=== PATIENT | female | born 1980 | race Caucasian/White ===

== ENCOUNTER 2017-12-18 02:07 | Emergency (ER) | payer SELFPAY ==
[~2017-12-18] VITALS: Ht 157.5 cm; Wt 54.0 kg
[2017-12-18] MEDS ORDERED: ONDANSETRON HCL/PF 4 MG/2 ML VIAL ONE (02:19)
--- NOTE | 2017-12-18 02:20 | NUR ---
37 yo female bb self. patient is alert and oriented, states she has a history of alcoholism, yesterday went on a dmitri drinking, today patient is nausea with multiple episodes of vomit. patient ambulated to er bed with steady gait, skin warm and dry, resp even and unlabored. patient was gowned,placed on cardiac rehabilitation program director. awaiting orders from provider, will continue to monitor
[2017-12-18] MEDS ORDERED: IV NS 0.9% 1,000 ML BAG IV ONE ×2 (02:30→03:30)
[2017-12-18] MEDS ORDERED: LORAZEPAM INJ 2 MG/ML VIAL IV ONE ×2 (02:30→05:30)
[2017-12-18] MEDS ORDERED: ONDANSETRON HCL/PF 4 MG/2 ML VIAL IVP ONE (02:30)
--- NOTE | 2017-12-18 02:30 | NUR ---
16g left ac iv started, blood sample obtained and sent to lab. medicated pt as ordered
[2017-12-18 03:02] LABS: BASOPHILS % (AUTO) 0.3 % (0.0-2.0); HEMATOCRIT 45 % (33-45); HEMOGLOBIN 14.9 g/dL (11.5-14.8); LYMPHOCYTES # (AUTO) 0.5 /CMM (0.8-4.8); LYMPHOCYTES % (AUTO) 3.7 % (20.0-44.0); MEAN CORPUSCULAR HEMOGLOBIN 34 PG (26.0-33.0); MEAN CORPUSCULAR HGB CONC 34 g/dl (31.0-36.0); MEAN CORPUSCULAR VOLUME 102 fL (82-100); MONOCYTES # (AUTO) 0.6 /CMM (0.1-1.30); MONOCYTES % (AUTO) 4.3 % (2.0-12.0); NEUTROPHILS # (AUTO) 13.3 /CMM (1.8-8.9); NEUTROPHILS % (AUTO) 91.7 % (43.0-81.0); PLATELET COUNT (AUTO) 123 /CMM (150-450); RDW COEFFICIENT OF VARIATION 13.1 (11.5-15.0); RED BLOOD CELL COUNT(AUTO) 4.34 MIL/uL (4.0-5.2); WHITE BLOOD COUNT (AUTO) 14.5 K/uL (4.3-11.0)
[2017-12-18 03:04] LABS: ALCOHOL, BLOOD < 3 mg/dL (0-0); CALCIUM, SERUM 9.8 mg/dL (8.5-10.1); CARBON DIOXIDE 11 mmol/L (21-32); CHLORIDE 91 mmol/L (98-107); CREATININE 1.1 mg/dL (0.6-1.3); GLUCOSE 141 mg/dL (74-106); POTASSIUM 3.8 mmol/L (3.5-5.1); SODIUM SERUM 137 mmol/L (136-145); UREA NITROGEN, BLOOD 7 mg/dL (7-18)
[2017-12-18] MEDS ORDERED: CHLORDIAZEPOXIDE HCL 25 MG CAPSULE PO ONE (04:00)
[2017-12-18] MEDS ORDERED: CHLORDIAZEPOXIDE HCL 25 MG CAPSULE ONE (04:04)
[2017-12-18] MEDS ORDERED: HYDROMORPHONE INJ 2 MG/ML DISP.SYRIN ONE (05:22)
[2017-12-18] MEDS ORDERED: LORAZEPAM INJ 2 MG/ML VIAL ONE (05:28)
--- NOTE | 2017-12-18 05:32 | NUR ---
medicated pt as ordered
[2017-12-18 05:54] VITALS: BP 142/82
--- NOTE | 2017-12-18 05:55 | NUR ---
Patient discharged to home in stable condition. Written and verbal after care instructions given. Patient verbalizes understanding of instruction.IV removed. Catheter intact and site benign. Pressure and 4x4 applied to site. No bleeding noted. pt ambulatory with a steady gait VITAL SIGNS WITHIN NORMAL LIMITS.
== END 2017-12-18 05:55 | disposition home or self-care (01) ==
LOC: ER 02:11
DX: F10.10 Alcohol abuse, uncomplicated (principal); I34.1 Nonrheumatic mitral (valve) prolapse; Y90.0 Blood alcohol level of less than 20 mg/100 ml
CPT/HCPCS: 36415; 80048; 85025; 96374; 96375; 96376; 99284; G0480; J2060; J2405; J7030 ×2; A4606; J1170; Z7610

== ENCOUNTER 2020-01-19 17:15 | Emergency (ER) | payer MEDICAID ==
[~2020-01-19] VITALS: Ht 157.5 cm; Wt 63.5 kg
--- NOTE | 2020-01-19 17:32 | NUR ---
etta, from a motel, c/o panic attack, nausea, admits on drinking vodka. On room air, breathing evenly and unlabored. connected to the monitor and pulse ox. kept comfortable, will continue to monitor accordingly.
[2020-01-19] MEDS ORDERED: ONDANSETRON HCL/PF 4 MG/2 ML VIAL ONE (17:50)
[2020-01-19] MEDS ORDERED: IV NS 0.9% 1,000 ML BAG IV ONE (18:00)
[2020-01-19] MEDS ORDERED: ONDANSETRON HCL/PF 4 MG/2 ML VIAL IVP ONE (18:00)
[2020-01-19 18:06] LABS: BASOPHILS # (AUTO) 0.1 /CMM (0.0-0.2); BASOPHILS % (AUTO) 0.8 % (0.0-2.0); EOSINOPHILS % (AUTO) 1.9 % (0.0-6.0); HEMATOCRIT 48 % (33-45); HEMOGLOBIN 16.1 g/dL (11.5-14.8); LYMPHOCYTES # (AUTO) 2.1 /CMM (0.8-4.8); LYMPHOCYTES % (AUTO) 15.9 % (20.0-44.0); MEAN CORPUSCULAR HGB CONC 33 g/dl (31.0-36.0); MEAN CORPUSCULAR VOLUME 96 fL (82-100); MONOCYTES # (AUTO) 0.3 /CMM (0.1-1.30); MONOCYTES % (AUTO) 2.6 % (2.0-12.0); NEUTROPHILS # (AUTO) 10.4 /CMM (1.8-8.9); NEUTROPHILS % (AUTO) 78.8 % (43.0-81.0); PLATELET COUNT (AUTO) 299 /CMM (150-450); RED BLOOD CELL COUNT(AUTO) 5.02 MIL/uL (4.0-5.2); WHITE BLOOD COUNT (AUTO) 13.1 K/uL (4.3-11.0)
--- NOTE | 2020-01-19 18:08 | NUR ---
MEDICATED PER EZEKIEL'S ORDER, PT SABIHA WELL.
[2020-01-19 18:30] LABS: CALCIUM, SERUM 9.5 mg/dL (8.5-10.1); POTASSIUM 4.1 mmol/L (3.5-5.1)
--- NOTE | 2020-01-19 19:47 | NUR ---
MECHANICAL METER TESTER AT
--- NOTE | 2020-01-19 21:50 | NUR ---
IV removed. Catheter intact and site benign. Pressure and 4x4 applied to site. No bleeding noted.
[2020-01-19 21:55] VITALS: BP 113/74
--- NOTE | 2020-01-19 21:55 | NUR ---
Patient discharged to home in stable condition. Written and verbal after care instructions given. Patient verbalizes understanding of instruction. IV removed. Catheter intact and site benign. Pressure and 4x4 applied to site. No bleeding noted.
== END 2020-01-19 21:56 | disposition home or self-care (01) ==
LOC: ER 17:17
DX: O26.891 Other specified pregnancy related conditions, first trimester (principal); E86.0 Dehydration; F10.129 Alcohol abuse with intoxication, unspecified; Y90.8 Blood alcohol level of 240 mg/100 ml or more; Z3A.14 14 weeks gestation of pregnancy
CPT/HCPCS: 36415; 76805; 80048; 80307; 81001; 84702; 84703; 85025; 96361; 96374; 99284; J2405; J7030 ×2; 81000-TC; G0480

== ENCOUNTER 2020-02-02 17:25 | Inpatient (IN) | payer MEDICAID ==
[~2020-02-02] VITALS: Ht 157.5 cm; Wt 61.2 kg
[2020-02-02] MEDS ORDERED: MORPHINE SULFATE INJ 4 MG/ML DISP.SYRIN ONE (17:51)
[2020-02-02] MEDS ORDERED: METOCLOPRAMIDE HCL 10 MG/2 ML VIAL ONE (17:51)
[2020-02-02] MEDS ORDERED: METOCLOPRAMIDE HCL 10 MG/2 ML VIAL IV ONE (18:00)
[2020-02-02] MEDS ORDERED: IV NS 0.9% 1,000 ML BAG IV ONE ×3 (18:00→21:00)
[2020-02-02] MEDS ORDERED: MORPHINE SULFATE INJ 2 MG/ML DISP.SYRIN IV ONE ×3 (18:00→21:00)
[2020-02-02 18:14] LABS: BASOPHILS # (AUTO) 0.1 /CMM (0.0-0.2); BASOPHILS % (AUTO) 0.4 % (0.0-2.0); HEMATOCRIT 40 % (33-45); HEMOGLOBIN 13.1 g/dL (11.5-14.8); LYMPHOCYTES # (AUTO) 0.4 /CMM (0.8-4.8); LYMPHOCYTES % (AUTO) 1.8 % (20.0-44.0); MEAN CORPUSCULAR HGB CONC 33 g/dl (31.0-36.0); MEAN CORPUSCULAR VOLUME 100 fL (82-100); MONOCYTES # (AUTO) 0.5 /CMM (0.1-1.30); MONOCYTES % (AUTO) 2.4 % (2.0-12.0); NEUTROPHILS # (AUTO) 20.6 /CMM (1.8-8.9); NEUTROPHILS % (AUTO) 95.4 % (43.0-81.0); PLATELET COUNT (AUTO) 176 /CMM (150-450); WHITE BLOOD COUNT (AUTO) 21.6 K/uL (4.3-11.0)
--- NOTE | 2020-02-02 18:15 | NUR ---
[id number], from a hotel, c/o abd pain since this morning,+N/V,-diarrhea 8/10 pain scale. PT AAOX3, VSS. RR EVEN & UNLABORED. DENIES CP, SOB, DIZZINESS AT THIS TIME. PT SEEN & EVAL'D BY MAXIM FALCON. MEDICATED ORDERED, PT SABIHA WELL. WILL CONT TO MONITOR.
[2020-02-02 18:17] LABS: APPEARANCE,URINE Clear (CLEAR); BILIRUBIN,URINE Negative (NEGATIVE); BLOOD, URINE Moderate Ery/uL (NEGATIVE); COLOR,URINE Yellow (YELLOW); KETONES,URINE 80 (NEGATIVE); LEUKOCYTE ESTERASE ,URINE Negative (NEGATIVE); NITRITE, URINE Negative (NEGATIVE); PH,URINE 5.5 (5.0-8.0); PROTEIN,URINE 100 mg/dl (NEGATIVE); UGLUCOSE Negative (NEGATIVE); UROBILINOGEN,URINE 0.2 EU/dL (0.2)
[2020-02-02 18:19] LABS: ALBUMIN 4.8 g/dL (3.4-5.0); BILIRUBIN,DIRECT 0.1 mg/dL (0.0-0.2); BILIRUBIN,TOTAL 0.4 mg/dL (0.2-1.0); CALCIUM, SERUM 8.6 mg/dL (8.5-10.1); POTASSIUM 4.4 mmol/L (3.5-5.1); TOTAL PROTEIN, SERUM 8.8 g/dL (6.4-8.2)
[2020-02-02 18:30] LABS: BACTERIA,URINE Few /HPF (None Seen); RBC,URINE 0-2 /HPF (0-2); SQUAMOUS EPITHELIAL CELL,UR Few /HPF (None Seen); WBC,URINE 0-2 /HPF (0-3)
[2020-02-02] MEDS ORDERED: LORAZEPAM INJ 2 MG/ML VIAL ONE ×2 (18:54→20:01)
[2020-02-02] MEDS ORDERED: LORAZEPAM INJ 2 MG/ML VIAL IV ONE ×2 (19:00→20:00)
[2020-02-02] MEDS ORDERED: CEFTRIAXONE 1GM BAG (ER ONLY) 50 ML IV ONE (19:26)
[2020-02-02] MEDS ORDERED: CEFTRIAXONE 1GM BAG (ER ONLY) 1 GM/50 ML PIGGYBACK IV ONE (19:30)
[2020-02-02] MEDS ORDERED: IV D5/ 0.9% NACL 1,000 ML IV ONE (19:30)
[2020-02-02] MEDS ORDERED: MORPHINE SULFATE INJ 2 MG/ML DISP.SYRIN ONE ×2 (19:39→20:55)
--- NOTE | 2020-02-02 19:40 | NUR ---
MEDICATED PER MAXIM FALCON'S ORDER, PT SABIHA WELL.
--- NOTE | 2020-02-02 20:11 | NUR ---
DR SHEA XIAO PER EZEKIEL PAN.
--- NOTE | 2020-02-02 21:03 | NUR ---
MOR 120-1
--- NOTE | 2020-02-02 21:16 | NUR ---
REPORT GIVEN TO DG RENDON FOR JOSE.
[2020-02-02] MEDS ORDERED: MAGNESIUM HYDROXIDE 30 ML UDC PO PRN (21:30)
[2020-02-02] MEDS ORDERED: ONDANSETRON HCL/PF 4 MG/2 ML VIAL IVP PRN (21:30)
[2020-02-02] MEDS ORDERED: MAG HYDROX/AL HYDROX/SIMETH 30 ML UDC PO PRN (21:30)
[2020-02-02] MEDS ORDERED: Z GUARD REMEDY 2 OZ OINT TP PRN (21:30)
[2020-02-02] MEDS ORDERED: ACETAMINOPHEN 325 MG TABLET PO PRN (21:30)
[2020-02-02] MEDS ORDERED: MORPHINE SULFATE INJ 2 MG/ML DISP.SYRIN IV PRN (21:30)
--- NOTE | 2020-02-02 21:40 | NUR ---
MOR RN NOTE ADMITTED ADMITTED 39YRS OLD FEMALE FROM ER WITH DX OF ACUTE ETOH WITHDRAWAL BY DAVONTE LOWERY. PT AWAKE A/O X4. BREATHING EVEN AND UNLABORED IN RA. SINUS TACHY HR 124 ON MONITOR. DENIES ANY PAIN AT THIS MOMENT. SALINE LOCK ON LEFT AC #20 INTACT AND PATENT. SKIN INTACT. ORIENTED PT TO HER ROOM. ADMITTING ORDERS CHECKED. SRX2 UP. BED IN LOWEST POSITION. CALL LIGHT WITHIN REACH. VSS. ALL NEEDS ATTENDED. PT NPO STATUS. WILL CONTINUE TO MONITOR.
[2020-02-02 22:00] VITALS: BP 156/93
--- NOTE | 2020-02-02 22:54 | NUR ---
MOR RN NOTE RECEIVED NEW ORDER FROM JUANCARLOS LOWERY. START CLEAR LIQUID DIET TOLERATED.
[2020-02-02] MEDS: LORAZEPAM INJ 2 MG/ML VIAL IV PRN (23:21)
[2020-02-02] MEDS: IV D5/0.45 NACL 1,000 ML IV PRN (23:22)
--- NOTE | 2020-02-02 23:33 | NUR ---
MOR RN NOTE ATIVAN 1MG IV PUSH GIVEN FOR RESTLESSNESS. PT TOLERATED WELL. IV FLUIDS D5 0.45% NS AT 100ML/HR ALSO STARTED. SABIHA WELL.
[2020-02-03] VITALS: BP 115/73
[2020-02-03 04:00] VITALS: BP 128/69
[2020-02-03 06:30] LABS: BASOPHILS % (AUTO) 0.3 % (0.0-2.0); EOSINOPHILS % (AUTO) 0.2 % (0.0-6.0); HEMATOCRIT 36 % (33-45); HEMOGLOBIN 12.2 g/dL (11.5-14.8); LYMPHOCYTES # (AUTO) 1.5 /CMM (0.8-4.8); LYMPHOCYTES % (AUTO) 13.7 % (20.0-44.0); MEAN CORPUSCULAR HGB CONC 34 g/dl (31.0-36.0); MEAN CORPUSCULAR VOLUME 97 fL (82-100); MONOCYTES # (AUTO) 0.9 /CMM (0.1-1.30); MONOCYTES % (AUTO) 8.4 % (2.0-12.0); NEUTROPHILS # (AUTO) 8.2 /CMM (1.8-8.9); NEUTROPHILS % (AUTO) 77.4 % (43.0-81.0); PLATELET COUNT (AUTO) 135 /CMM (150-450); RED BLOOD CELL COUNT(AUTO) 3.69 MIL/uL (4.0-5.2); WHITE BLOOD COUNT (AUTO) 10.7 K/uL (4.3-11.0)
--- NOTE | 2020-02-03 06:30 | NUR ---
MOR RN CLOSING NOTE PT IN BED. ASLEEP. BREATHING EVEN AND UNLABORED. NO SOB OR ACUTE DISTRESS NOTED. CONVERTED TO INVERTED TWAVE FROM SINUS RHYTHM HR 98. NO SIGNS OF PAIN NOTED. BED IN LOWEST POSITION. ALL NEEDS RENDERED. CALL LIGHT WITHIN REACH. WILL ENDORSE TO DAY SHIFT NURSE FOR CONTINUITY OF CARE.
--- NOTE | 2020-02-03 07:30 | NUR ---
RN OPENING NOTE: Received patient in bed. Awake, alert and oriented x4. Able to make needs known. On room air and tolerating well. No SOB and not in respiratory distress, saturation @ 98%. Tele monitor showing sinus tachycardia @ 104 with inverted T wave as reported by previous shift. Iv site clean, dry, patent and intact. IV infusion of D5 1/2 NS being tolerated well. Abdominal pain still reported and will be managed with medications available. Denies N/V or any other discomfort at the moment. Awaiting to be seen by Dr. Busch for OBGYN consult. Call light in reach. Bed locked, low and at semi-veloz's position. Side rails up x3. Safety ensured and observed. Seizure precaution in place. Will continue to monitor.
[2020-02-03 08:00] VITALS: BP 110/73
[2020-02-03] MEDS: PANTOPRAZOLE 40 MG VIAL IV SCH (08:12)
[2020-02-03] MEDS ORDERED: BIRTH CONTROL MED (08:43)
[2020-02-03] MEDS: IV D5/0.45 NACL 1,000 ML IV PRN (08:53)
[2020-02-03 09:14] LABS: CALCIUM, SERUM 7.8 mg/dL (8.5-10.1); CREATININE 0.6 mg/dL (0.6-1.3); MAGNESIUM 1.9 mg/dL (1.8-2.4); PHOSPHORUS 1.2 mg/dL (2.5-4.9); POTASSIUM 3.6 mmol/L (3.5-5.1)
[2020-02-03 09:19] LABS: THYROID STIMULATING HORMONE 4.328 uIU/mL (0.358-3.74)
[2020-02-03 12:00] VITALS: BP 129/81
[2020-02-03] MEDS: LORAZEPAM INJ 2 MG/ML VIAL IV PRN (12:44)
[2020-02-03] MEDS ORDERED: NEUTRA PHOS 1 POWD.PACKET PO ONE (14:30)
[2020-02-03 16:00] VITALS: BP 128/85
--- NOTE | 2020-02-03 18:21 | NUR ---
RN CLOSING NOTE: Patient remains in bed. Awake, alert and oriented x4. Able to make needs known. On room air and tolerating well. No SOB and not in respiratory distress, saturation @ 98%. Tele monitor showing sinus rhythm @ 90s. Iv site clean, dry, patent and intact. IV infusion of D5 1/2 NS being tolerated well. Abdominal pain still reported but effectively managed by available medications. Denies N/V or any other discomfort at the moment. Was seen by Dr. Busch for OBGYN consult. Patient wishes to be discharged but wanting to speak to PCP, still awaiting to be seen by Valdemar Mojica DNP. Paged but to response. Patient verbalized that she will talk to him first thing in the morning tomorrow. Call light in reach. Bed locked, low and at semi-veloz's position. Side rails up x3. Safety ensured and observed. Seizure precaution in place. Due medications given. Needs attended and met. Will endorse to oncoming shift for JOSE.
--- NOTE | 2020-02-03 19:25 | NUR ---
RN NOTE: Report given to DG Braden
[2020-02-03 20:00] VITALS: BP 136/84
--- NOTE | 2020-02-03 20:00 | NUR ---
MOR RN NOTE RECEIVED PT IN BED. AWAKE A/O X4. BREATHING EVEN AND UNLABORED IN RA. 02 SATURATION 98%. SINUS TACHY ON MONITOR HR 98. DENIES ANY PAIN OR DISCOMFORT. LEFT AC #20 PATENT AND INTACT. INSERTED IV LINE ON LEFT FOREARM #22 WITH GOOD BLOOD RETURN. IVF D5 1/2 NS AT 100ML/HR INFUSING WELL. PT TOLERATED PROCEDURE WELL. BED IN LOWEST POSITION. CALL LIGHT WITHIN REACH. ALL NEEDS RENDERED. WILL CONTINUE TO MONITOR.
[2020-02-04] VITALS: BP 132/84
[2020-02-04] MEDS: IV D5/0.45 NACL 1,000 ML IV PRN ×2 (03:37→14:16)
[2020-02-04 04:00] VITALS: BP 128/77
--- NOTE | 2020-02-04 06:24 | NUR ---
MOR RN NOTE PT IN BED,ASLEEP. BREATHING EVEN AND UNLABORED IN RA.02 SATURATION 99%. NO SOB OR ACUTE DISTRESS NOTED. NO SIGNS OF PAIN NOTED. LFA #22 IV PATENT AND INTACT. D5 1/2 NS INFUSING WELL. LAC #20 SALINE LOCK INTACT AND PATENT. BED IN LOWEST POSITION. CALL LIGHT WITHIN REACH. ALL NEEDS RENDERED. WILL ENDORSE TO AM NURSE FOR CONTINUITY OF CARE.
[2020-02-04 08:00] VITALS: BP 131/66
--- NOTE | 2020-02-04 08:28 | NUR ---
MOR RN NOTE Pt in bed. A/O x4. Pt on room air. No SOB noted. Tele monitor shows SR 88. Pt on clear liquid diet. Pt able to feed self. LFA, LAC intact and flushed well. On IV fluids as ordered. Bed in lowest and locked position. Safety measures observed. All needs attended. Call light within reach. Plan of care discussed with patient. Will continue to monitor.
[2020-02-04] MEDS: PANTOPRAZOLE 40 MG VIAL IV SCH (08:47)
--- NOTE | 2020-02-04 09:00 | NUR ---
MS RN NOTE: ANAI DNP at bedside, notified Phos is 1.4. Pt complained of urinary difficulty and Right Side Abdominal Pain. Stated will replace Phosphorus, check urine test, and abdominal pain due to uterine . No new order given at this time.
[2020-02-04] MEDS ORDERED: NEUTRA PHOS 1 POWD.PACKET PO ONE (09:30)
[2020-02-04 12:00] VITALS: BP 128/78
--- NOTE | 2020-02-04 13:25 | NUR ---
MS RN NOTE ROUNDS MADE, ALL NEEDS ATTENDED ABLE TO GO TO BR ABLE TO URINATE WELL YELLOW COLOR URINE ,CALL LIGHT WITHIN REACH ,WILL CONT TO MONITOR CLOSELY
[2020-02-04 16:00] VITALS: BP 114/76
--- NOTE | 2020-02-04 18:41 | NUR ---
MS RN NOTE: Pt rounds made. Pt is in bed in lowest, locked position. Pt able to ambulate to use the bathroom. Call light within reach. IV fluids to be continued. PT's needs addressed. Pt not in distress.
--- NOTE | 2020-02-04 19:38 | NUR ---
MS RN NOTES RECEIVED PATIENT IN BED,ASLEEP. NO SIGNS OF ACUTE RESPIRATORY DISTRESS NOTED. BREATHING EVEN AND UNLABORED IN RA.02 SATURATION 99%. NO SOB OR ACUTE DISTRESS NOTED. NO SIGNS OF PAIN NOTED. LFA #22 IV PATENT AND INTACT. D5 1/2 NS INFUSING WELL. LAC #20 SALINE LOCK INTACT AND PATENT. SAFETY MEASURES IN PLACE, BED IN LOWEST LOCKED POSITION. CALL LIGHT WITHIN EASY REACH. ALL NEEDS ANTICIPATED. WILL CONTINUE TO MONITOR ACCORDINGLY.
[2020-02-04 20:16] VITALS: BP 134/84
[2020-02-05 01:09] VITALS: BP 134/84
[2020-02-05] MEDS: IV D5/0.45 NACL 1,000 ML IV PRN (04:41)
[2020-02-05 04:56] VITALS: BP 134/84
--- NOTE | 2020-02-05 06:16 | NUR ---
MS RN NOTES ALL NEEDS ATTENDED AND MET. ABLE TO REST AND SLEPT AT INTERVALS, PATIENT IN BED,ASLEEP. NO SIGNS OF ACUTE RESPIRATORY DISTRESS NOTED. BREATHING EVEN AND UNLABORED IN RA.02 SATURATION 99%. NO SOB OR ACUTE DISTRESS NOTED. NO SIGNS OF PAIN NOTED. LFA #22 IV PATENT AND INTACT. D5 1/2 NS INFUSING WELL. LAC #20 SALINE LOCK INTACT AND PATENT. SAFETY MEASURES IN PLACE, BED IN LOWEST LOCKED POSITION. CALL LIGHT WITHIN EASY REACH. ALL NEEDS ANTICIPATED. WILL ENDORSE TO AM NURSE FOR CONTINUITY OF CARE.
--- NOTE | 2020-02-05 07:45 | NUR ---
RN MS OPENING NOTE RECEIVED PT IN BED AWAKE, ALERT AND ORIENTED X4. PT IS ON ROOM AIR AND SATURATING AT 99% AT THIS TIME. PT IS AMBULATORY WITH SKIN INTACT. PT DOES NOT REQUIRE AT ASSISTANCE TO AMBULATE TO THE RESTROOM BESIDES WITH IV POLE. PT IS ON A CLEAR LIQUID DIET AT THIS TIME. PT NOTED WITH A LFA 20' AND A LAC 20' THAT IS INTACT, PATENT AND FLUSHING WELL AT THIS TIME. NO SIGNS OR SYMPTOMS OF INFECTION NOTED. NO COMPLAINTS OR PAIN OR DISCOMFORT. PT IS FULL CODE WITH A SULFA ALLERGY. PT IS CURRENTLY IN STABLE CONDITION AT THIS TIME. CALL LIGHT WITHIN REACH AND FUNCTIONING. WILL CONTINUE TO MONITOR AND ASSESS PT.
[2020-02-05 08:00] VITALS: BP 131/66
[2020-02-05] MEDS: PANTOPRAZOLE 40 MG VIAL IV SCH (08:40)
--- NOTE | 2020-02-05 09:00 | NUR ---
RN MS NOTE PT'S DIET WAS ADVANCED FROM CLEAR LIQUIDS TO REGULAR DIET. PT RECEIVED NEW TRAY WITH HELP OF EDWAR SHEPHERD. WILL CONTINUE TO MONITOR AND ASSESS PT.
--- NOTE | 2020-02-05 11:10 | NUR ---
RN MS NOTE PT DISCHARGED IN STABLE CONDITION. PT LEFT WITH ALL HER BELONGINGS AND DISCHARGE PAPERS PER FACILITY PROTOCOL. D/C CARE AND INSTRUCTIONS PROVIDED PER HOSPITAL PROTOCOL. PT DOES NOT APPEAR TO BE IN ANY ACUTE DISTRESS OR SOB AT THIS TIME. PT DOES NOT COMPLAIN OF ANY PAIN OR DISCOMFORT. PT LEFT HOSPITAL IN STABLE CONDITION.
[2020-02-05 11:11] LABS: CALCIUM, SERUM 9.2 mg/dL (8.5-10.1); CREATININE 0.6 mg/dL (0.6-1.3); PHOSPHORUS 2.3 mg/dL (2.5-4.9)
[2020-02-05 11:13] LABS: POTASSIUM 2.8 mmol/L (3.5-5.1)
--- NOTE | 2020-02-05 11:16 | NUR ---
RN MS NOTE RECEIVED CALL FOR PHARMACY REGARDING PT'S POTASSIUM LEVEL OF 2.8 INFORMED ELECTRIC POWER LINE REPAIRER THAT PT LEFT HOSPITAL. INFORMED CHARGE NURSE.
[2020-02-06] MEDS ORDERED: PANTOPRAZOLE 40 MG TABLET.DR PO SCH (07:30)
== END 2020-02-05 11:00 | disposition home or self-care (01) | DRG 566 ==
LOC: ER 17:28 → TELE-TD 21:11 → TELE1 02-03 17:48 → TELE-TD 02-03 18:36 → MEDSG1 02-04 08:28
PROVIDERS: ADMIT Registered Nurse; ATTEND Nurse Practitioner Acute Care
DX: O99.311 Alcohol use complicating pregnancy, first trimester (principal); F10.239 Alcohol dependence with withdrawal, unspecified; F10.229 Alcohol dependence with intoxication, unspecified; E86.0 Dehydration; Z3A.01 Less than 8 weeks gestation of pregnancy; Y90.2 Blood alcohol level of 40-59 mg/100 ml; E87.2 Acidosis; O99.281 Endocrine, nutritional and metabolic diseases complicating pregnancy, first trimester; D72.829 Elevated white blood cell count, unspecified; E83.39 Other disorders of phosphorus metabolism; E86.1 Hypovolemia; E87.1 Hypo-osmolality and hyponatremia; G93.40 Encephalopathy, unspecified; O09.521 Supervision of elderly multigravida, first trimester; O99.351 Diseases of the nervous system complicating pregnancy, first trimester
CPT/HCPCS: 36415; 71045-TC; 76805-TC; 80048-TC; 80061-TC; 80076-TC; 80305; 81000-TC; 83605-TC; 83690-TC; 83735-TC; 84100-TC; 84439-TC; 84443-TC; 84702-TC; 85025-TC; 87081-TC; C9113; C9803-CS; G0378; J0696; J2060; J2270; J2765; J3490; J7030; J7042